=== PATIENT | female | born 1960 | race Caucasian/White ===

== ENCOUNTER → 2017-04-05 | Outpatient (CLI) | payer OTHER ==
[~2017-04-05] MED LIST: ALL180 PO; CLX20 PO; GADAVIST IV PRN; HYDC25 PO; LPR25 PO; TRAZ50TA35 PO
--- NOTE | 2017-04-05 13:55 | DIAGNOSTIC IMAGING REPORT ---
BRAIN COMBO CLINICAL HISTORY: Z87.820 History of traumatic brain [id number] mental status change. Trauma. COMPARISON STUDY: No previous studies for comparison. TECHNIQUE: Utilizing a 1.5 Tatianna magnet and dedicated coil, multiplanar, multiecho imaging of the brain was performed pre and postcontrast administration. IV administration of 12 mL of Gadavist contrast was uneventful. FINDINGS: Diffusion-weighted images are negative for an acute ischemic insult. All remaining sequences demonstrate several foci of increased signal within the periventricular deep white matter regions. This Potentially is age related and/or related to a history of chronic headache. There are no enhancing lesions. The ventricular system is midline. Sella and parasellar regions are unremarkable. Internal auditory canals are symmetric. IMPRESSION: Negative MRI of the brain. The above report was generated using voice recognition software. It may contain grammatical, syntax or spelling errors. Electronically signed by: Randolph Busch M.D. 04/05/2017 1:54 PM Dictated Date/Time: 04/05/2017 1:51 PM
== END | disposition home or self-care (01) ==
LOC: C.MRI 12:35
PROVIDERS: ATTEND Psychiatry & Neurology Neurology
DX: Z87.820 Personal history of traumatic brain injury (principal)

== ENCOUNTER 2022-05-07 06:29 | Observation (INO) ==
--- NOTE | 2022-04-19 10:50 | PAT Medication Instructions ---
Medication Instructions Date of Service April 19, 2022 Home Medications Medication Instructions Recorded carbidopa 25 mg-levodopa 100 mg 2 tab PO TID 30 days #180 tabs 01/29/22 tablet ondansetron 4 mg disintegrating 4 mg PO Q8H PRN nausea and 04/10/22 tablet vomiting #21 tabs pramipexole 1 mg tablet 1 mg PO TID 90 days #270 tabs 04/17/22 pregabalin 100 mg capsule 100 mg PO BID #60 caps 04/17/22 epinephrine 0.3 mg/0.3 mL injection, auto-injector (EpiPen) 0.3 mg IM DIRECTED PRN Allergic Reaction losartan 50 mg-hydrochlorothiazide 12.5 mg tablet 0.5 tab PO QAM metoprolol tartrate 25 mg tablet 25 mg PO BID atorvastatin 10 mg tablet 10 mg PO QAM bupropion HCl 150 mg 24 hr tablet, extended release 150 mg PO BID carbidopa 25 mg-levodopa 100 mg tablet 2 tab PO TID aspirin 81 mg tablet,delayed release (Adult Low Dose Aspirin) 81 mg PO HS oxybutynin chloride 5 mg tablet 5 mg PO QAM pantoprazole 40 mg tablet,delayed release 40 mg PO QAM spironolactone 25 mg tablet 25 mg PO QAM torsemide 20 mg tablet 20 mg PO QAM ondansetron 4 mg disintegrating tablet 4 mg PO Q8H PRN nausea and vomiting pramipexole 1 mg tablet 1 mg PO TID pregabalin 100 mg capsule 100 mg PO BID Medical Marijuana 1 dose PO DIRECTED PRN Pain albuterol sulfate 90 mcg/actuation aerosol inhaler 1 puff inhalation QID PRN Wheezing meloxicam 15 mg tablet 15 mg PO QAM Continue as directed epinephrine 0.3 mg/0.3 mL injection, auto-injector (EpiPen) 0.3 mg IM DIRECTED PRN Allergic Reaction (if needed) ASK your surgeon for instructions meloxicam 15 mg tablet 15 mg PO QAM DO NOT take the morning of surgery losartan 50 mg-hydrochlorothiazide 12.5 mg tablet 0.5 tab PO QAM oxybutynin chloride 5 mg tablet 5 mg PO QAM spironolactone 25 mg tablet 25 mg PO QAM torsemide 20 mg tablet 20 mg PO QAM Medical Marijuana 1 dose PO DIRECTED PRN Pain Take morning of surgery With a small sip of water, OTHERWISE NOTHING TO EAT OR DRINK AFTER MIDNIGHT: metoprolol tartrate 25 mg tablet 25 mg PO BID atorvastatin 10 mg tablet 10 mg PO QAM bupropion HCl 150 mg 24 hr tablet, extended release 150 mg PO BID carbidopa 25 mg-levodopa 100 mg tablet 2 tab PO TID pantoprazole 40 mg tablet,delayed release 40 mg PO QAM ondansetron 4 mg disintegrating tablet 4 mg PO Q8H PRN nausea and vomiting (if needed) pramipexole 1 mg tablet 1 mg PO TID pregabalin 100 mg capsule 100 mg PO BID albuterol sulfate 90 mcg/actuation aerosol inhaler 1 puff inhalation QID PRN Wheezing (use if needed; please bring rescue inhaler with you to hospital day of surgery if possible) Take evening before surgery metoprolol tartrate 25 mg tablet 25 mg PO BID bupropion HCl 150 mg 24 hr tablet, extended release 150 mg PO BID carbidopa 25 mg-levodopa 100 mg tablet 2 tab PO TID aspirin 81 mg tablet,delayed release (Adult Low Dose Aspirin) 81 mg PO HS (continue as normal unless told otherwise by surgeon) ondansetron 4 mg disintegrating tablet 4 mg PO Q8H PRN nausea and vomiting (if needed) pramipexole 1 mg tablet 1 mg PO TID pregabalin 100 mg capsule 100 mg PO BID Medical Marijuana 1 dose PO DIRECTED PRN Pain (if needed) albuterol sulfate 90 mcg/actuation aerosol inhaler 1 puff inhalation QID PRN Wheezing (if needed) Other Notes If you have any questions please call us at [phone] or [phone] or [phone] or [phone]
--- NOTE | 2022-04-20 09:57 | Anesthesiology Consultation ---
Date of Service April 20, 2022 Assessment & Plan (1) Encounter for pre-operative examination: - COVID screening: Per assessment on 04/20: No known COVID-19 positive contacts or current COVID-19 related symptoms. Travel screen negative. At surgeon discretion if preop Covid testing being done. - Outpatient joint assessment: Pt currently scheduled for inpatient pathway. If surgeon requests review for outpatient joint pathway, patient is not recommended candidate for outpatient joint program from anesthesia standpoint. - Neurology office visit (04/17/22): "62-year-old female with idiopathic mild tremor predominant left connor-Parkinson's disease and mild to moderate lumbar spinal stenosis with radiculopathy. Patient will continue with Sinemet and Mirapex at the current dosages for management of her Parkinson's. I did recommend increasing her dosage of Lyrica to 100 mg twice daily for improved control of her symptomatic lumbar spinal stenosis/lumbar radiculopathy. However, degree of degenerative change does not appear to be significant enough to warrant surgical intervention at this time. We will of the time being, however, patient is focusing on her left knee, may require total knee arthroplasty. I will continue to monitor this issue going forward. Could also consider a referral to pain management for NEEMA if necessary." - Patient acceptable risk for surgery pending surgeon-ordered cardiology preop evaluation (Bianca Guerrero, appt 04/24). Chart Review Chart Review: Patient seen in Pre Admission Testing Teaching & Discussion Pre-Anesthesia Teaching/Discussion Notes: Instructed NPO after midnight before surgery,except medications with 15 cc of water. Medication instructions provided according to the PAT guidelines. History Surgery Operation Date: 05/07/22 12:30 Proposed Procedures p Left Total Knee Arthroplasty - Gaetano Hays MD Height/Weight Height: 5 ft 1 in Weight: 115.7 kg Allergies Allergy/AdvReac Type Severity Reaction Status Date / Time bee venom protein (honey bee) Allergy Severe Anaphylaxis Verified 04/19/22 10:03 lisinopril Allergy Mild Cough Verified 04/19/22 10:03 Medications Home Medications Medication Instructions Recorded Confirmed Last Taken epinephrine 0.3 mg/0.3 mL 0.3 mg IM DIRECTED PRN Allergic 10/08/18 04/19/22 Unknown injection, auto-injector (EpiPen) Reaction losartan 50 mg-hydrochlorothiazide 0.5 tab PO QAM 10/08/18 04/19/22 08/04/19 12.5 mg tablet metoprolol tartrate 25 mg tablet 25 mg PO BID 10/08/18 04/19/22 08/04/19 atorvastatin 10 mg tablet 10 mg PO QAM 10/17/20 04/19/22 Unknown bupropion HCl 150 mg 24 hr tablet, 150 mg PO BID 10/17/20 04/19/22 Unknown extended release carbidopa 25 mg-levodopa 100 mg 2 tab PO TID 30 days #180 tabs 01/29/22 04/19/22 Unknown tablet aspirin 81 mg tablet,delayed 81 mg PO HS 03/08/22 04/19/22 Unknown release (Adult Low Dose Aspirin) oxybutynin chloride 5 mg tablet 5 mg PO QAM 03/08/22 04/19/22 Unknown pantoprazole 40 mg tablet,delayed 40 mg PO QAM 03/08/22 04/19/22 Unknown release spironolactone 25 mg tablet 25 mg PO QAM 03/08/22 04/19/22 Unknown torsemide 20 mg tablet 20 mg PO QAM 03/08/22 04/19/22 Unknown ondansetron 4 mg disintegrating 4 mg PO Q8H PRN nausea and 04/10/22 04/19/22 Unknown tablet vomiting #21 tabs pramipexole 1 mg tablet 1 mg PO TID 90 days #270 tabs 04/17/22 04/19/22 Unknown pregabalin 100 mg capsule 100 mg PO BID #60 caps 04/17/22 04/19/22 Unknown Medical Marijuana 1 dose PO DIRECTED PRN Pain 04/19/22 04/19/22 Unknown albuterol sulfate 90 mcg/actuation 1 puff inhalation QID PRN Wheezing 04/19/22 04/19/22 Unknown aerosol inhaler meloxicam 15 mg tablet 15 mg PO QAM 04/19/22 04/19/22 Unknown Wheeled Walker #1 ea 04/20/22 04/20/22 Unknown Past Medical History Medical History Asthma CHF (congestive heart failure) follows with Dr. 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, under surveillance Parkinson disease Primary osteoarthritis of knees, bilateral Sleep apnea No device Exercise / Class Metabolic Activity III < 4 Walking/Shop/Light housework (one FS (no CP, + occasional SOB)) Past Family History Family History Father Heart disease Grandfather (Paternal) Lung cancer Uncle Colorectal cancer Family/Other Breast cancer Grandmother (Maternal) Diabetes Grandfather (Maternal) Stroke Other No significant family history Past Surgical History Surgical History History of colonoscopy History of endometrial ablation History of tooth extraction Past Anesthesia History No Hx of Anesthesia Complications and No Family Hx of Anesthesia Complications History of PONV No Hx of PONV and Hx of Motion Sickness Social History Smoking Status: Never smoker Do You Dip or Chew Tobacco: No Hx Alcohol Use: Yes Alcohol type: wine alcohol intake frequency: a few times a week Hx Substance Use: Yes substance use type: marijuana (Medical card (for parkinsons)) Review of Systems Had Norovirus 04/11/22- pt reports at PAT visit that symptoms have resolved* Remote hx of occasional palpitations- no recent issues. Patient denies chest pain, shortness of breath, fever, chills, cough, wheezing. Physical Exam Vital Signs VITALS BP 98/53 > 106/62 with manual recheck P 63 TEMP 98.2 SP02 94%RA RESP 18 PHYSICAL Full cervical extension range of motion. Full TMJ range of motion. TMD 4 finger breaths Mallampati Score 3 Dentition: intact Lungs: clear throughout to auscultation Cardiac: regular rate and rhythm, no murmurs noted Spine: normal Carotid arteries: negative bruit Extremities: no edema Short, thick neck Lab Results Anesthesia Preop Results Results Anesthesia Widget: WBC 6.25 K/ul (4.8-10.8) 04/20/22 Hgb 12.2 g/dl (12.0-16.0) 04/20/22 Hct 37.9 % (37.0-47.0) 04/20/22 Plt 314 K/uL (130-400) 04/20/22 Na 142 mmol/L (136-145) 04/20/22 K 4.2 mmol/L (3.5-5.1) 04/20/22 Cl 101 mmol/L (98-107) 04/20/22 CO2 35 mmol/L (21-32) H 04/20/22 BUN 32 mg/dl (6-23) H 04/20/22 Creat 1.29 mg/dl (0.6-1.2) H 04/20/22 Glucose Level 87 mg/dl (70-99(Fasting)) 04/20/22 PT 10.7 Seconds (9.0-12.0) 04/20/22 PTT 28.0 Seconds (21.0-31.0) 04/20/22 INR 1.0 (0.9-1.1) 04/20/22 TSH 2.430 uIu/ml (0.300-4.500) 03/08/22 HA1c 6.3 % (4.5-5.6) H 03/08/22 SARS-CoV-2, RNA, NAAT Negative 04/10/22 Blood Type O Negative 04/20/22 Antibody Screen NEGATIVE 04/20/22 Testing Electrocardiogram Date: 03/14/22 Normal sinus rhythm at 70 bpm. Normal ECG. No significant change compared to 11/08/2021 per furniture sales consultant comparison. *Poor data quality. Chest X-Ray Date: 03/14/22 FINDINGS: Exam is limited by underpenetration. Cardiomegaly is noted. Atelectasis is seen in the right midlung. No airspace opacities are seen. No evidence of pleural effusion or pneumothorax. IMPRESSION: No acute abnormalities and in particular no evidence of pneumonia. Stress Test Date: 10/26/21 Type: exercise Nondiagnostic stress echo. Inadequate cardiovascular stress test as patient obtained 63% MPHR. 5.0 METS. No significant arrhythmias noted. Rest echo: LVEF 60 to 64%. Moderately increased concentric LV wall thickness. Mild RVD. Mild AR/MR. Trivial anterior loculated pericardial effusion is present. Grade 1 diastolic dysfunction. COVID-19 Risk Screen Screening Information COVID-19 Screen Date: 04/20/22 Exposure 21 Days Family/Household +COVID Last 21 Days: No Exposure 10 Days Any COVID Exposure Last 10 Days: No Symptoms Last 10 Days Experienced COVID Sx Last 10 Days: No + COVID 0-90 Days COVID + in Last 0-90 Days: No
--- NOTE | 2022-05-04 14:15 | Anesthesiology Consultation ---
Date of Service May 04, 2022 History Surgery Operation Date: 05/07/22 08:50 Proposed Procedures p Left Total Knee Arthroplasty - Gaetano Hays MD Height/Weight Height: 5 ft 1 in Weight: 115.7 kg Allergies Allergy/AdvReac Type Severity Reaction Status Date / Time bee venom protein (honey bee) Allergy Severe Anaphylaxis Verified 04/19/22 10:03 lisinopril Allergy Mild Cough Verified 04/19/22 10:03 Medications Home Medications Medication Instructions Recorded Confirmed Last Taken epinephrine 0.3 mg/0.3 mL 0.3 mg IM DIRECTED PRN Allergic 10/08/18 04/19/22 Unknown injection, auto-injector (EpiPen) Reaction losartan 50 mg-hydrochlorothiazide 0.5 tab PO QAM 10/08/18 04/19/22 08/04/19 12.5 mg tablet metoprolol tartrate 25 mg tablet 25 mg PO BID 10/08/18 04/19/22 08/04/19 atorvastatin 10 mg tablet 10 mg PO QAM 10/17/20 04/19/22 Unknown bupropion HCl 150 mg 24 hr tablet, 150 mg PO BID 10/17/20 04/19/22 Unknown extended release carbidopa 25 mg-levodopa 100 mg 2 tab PO TID 30 days #180 tabs 01/29/22 04/19/22 Unknown tablet aspirin 81 mg tablet,delayed 81 mg PO HS 03/08/22 04/19/22 Unknown release (Adult Low Dose Aspirin) oxybutynin chloride 5 mg tablet 5 mg PO QAM 03/08/22 04/19/22 Unknown pantoprazole 40 mg tablet,delayed 40 mg PO QAM 03/08/22 04/19/22 Unknown release spironolactone 25 mg tablet 25 mg PO QAM 03/08/22 04/19/22 Unknown torsemide 20 mg tablet 20 mg PO QAM 03/08/22 04/19/22 Unknown ondansetron 4 mg disintegrating 4 mg PO Q8H PRN nausea and 04/10/22 04/19/22 Unknown tablet vomiting #21 tabs pramipexole 1 mg tablet 1 mg PO TID 90 days #270 tabs 04/17/22 04/19/22 Unknown pregabalin 100 mg capsule 100 mg PO BID #60 caps 04/17/22 04/19/22 Unknown Medical Marijuana 1 dose PO DIRECTED PRN Pain 04/19/22 04/19/22 Unknown albuterol sulfate 90 mcg/actuation 1 puff inhalation QID PRN Wheezing 04/19/22 04/19/22 Unknown aerosol inhaler meloxicam 15 mg tablet 15 mg PO QAM 04/19/22 04/19/22 Unknown Wheeled Walker #1 ea 04/20/22 04/20/22 Unknown Past Medical History Medical History Asthma CHF (congestive heart failure) follows with Dr. 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, under surveillance Parkinson disease Primary osteoarthritis of knees, bilateral Sleep apnea No device Past Family History Family History Father Heart disease Grandfather (Paternal) Lung cancer Uncle Colorectal cancer Family/Other Breast cancer Grandmother (Maternal) Diabetes Grandfather (Maternal) Stroke Other No significant family history Past Surgical History Surgical History History of colonoscopy History of endometrial ablation History of tooth extraction Social History Smoking Status: Never smoker Do You Dip or Chew Tobacco: No Hx Alcohol Use: Yes Alcohol type: wine alcohol intake frequency: a few times a week Hx Substance Use: Yes substance use type: marijuana Substance Use Type Other:: Medical card for parkinsons
[~2022-05-07 06:29] MED LIST changes: +ACETAMINOPHEN 500 MG TAB PO SCH; -ALL180 PO; +BUPIVACAINE LIPOSOME/PF 266 MG, BUPIVACAINE/EPINEPHRINE 50 ML, SODIUM CHLORIDE 0.9% 30 ... INFIL SCH; -CLX20 PO; +CeleBREX 200 MG CAP PO SCH; +FAMOTIDINE 20 MG TAB PO SCH; -GADAVIST IV PRN; -HYDC25 PO; -LPR25 PO; +LR 15ML/HR IV SCH; +LR 60ML/HR IV SCH; +METOCLOPRAMIDE HCL 10 MG TABLET PO SCH; +Scopolamine 1 MG TDSY TD SCH; +TRANEXAMIC ACID 1,000 MG **IV Intra-op IV SCH; -TRAZ50TA35 PO; +ceFAZolin 2000MG 2,000 MG/15 ML SYR IV SCH
[2022-05-07] MEDS ORDERED: ROPIVACAINE 0.5% 5 MG/ML 30 ML VIAL ONE (06:33)
[2022-05-07] MEDS ORDERED: BUPIVACAINE 0.5 % 5 MG/1 ML PF 10ML VIAL ONE (06:33)
--- NOTE | 2022-05-07 06:45 | History & Physical Bridge Note ---
Date of Service May 07, 2022 History & Physical Bridge Note I have examined the patient, reviewed the History & Physical and in the interval since the performance of the History & Physical I have noted the following changes of clinical significance: no changes noted
[2022-05-07] MEDS ORDERED: fentaNYL citrate 100 MCG/2 ML VIAL ONE (07:16)
[2022-05-07] MEDS ORDERED: PROPOFOL IV EMULSION 10 MG/ML 20 ML VIAL IV ONE ×4 (07:16→09:45)
[2022-05-07] MEDS ORDERED: MIDAZOLAM HCL 1 MG/ML 2ML VIAL ONE (07:16)
[2022-05-07] MEDS ORDERED: ePHEDrine sulfate 50 MG/ML AMP IV PRN (07:42)
[2022-05-07] MEDS ORDERED: ALBUT/IPRATROP 3MG/0.5MG NEB 3 ML VIAL NEB STA (07:42)
[2022-05-07] MEDS ORDERED: fentaNYL citrate 100 MCG/2 ML VIAL IV PRN (07:42)
[2022-05-07] MEDS ORDERED: ONDANSETRON INJ 2 MG/ML 2 ML VIAL IV PRN ×2 (07:42→12:45)
[2022-05-07] MEDS ORDERED: ATROPINE SULFATE 0.1 MG/ML 10ML SYR IV PRN (07:42)
[2022-05-07] MEDS ORDERED: HYDROmorphone INJ 2 MG/ML SYR/VIAL IV PRN (07:42)
[2022-05-07] MEDS ORDERED: BUPIVACAINE/EPINEPHRINE 0.25% 1:200,000 30 ML VIAL ONE (08:59)
[2022-05-07] MEDS ORDERED: SODIUM CHLORIDE 0.9% PF 50 ML VIAL ONE (08:59)
[2022-05-07] MEDS ORDERED: BUPIVACAINE LIPOSOME 1.3% 266 MG/20 ML VIAL ONE (08:59)
[2022-05-07] MEDS ORDERED: VANCOMYCIN HCL 1000MG/20ML VIAL ONE (08:59)
[2022-05-07] MEDS ORDERED: ePHEDrine sulfate 50 MG/ML SYR ONE (09:39)
[2022-05-07] MEDS ORDERED: DEXAMETHASONE SOD INJ 4 MG/ML VIAL ONE (09:42)
[2022-05-07] MEDS ORDERED: ONDANSETRON INJ 2 MG/ML 2 ML VIAL ONE (09:42)
--- NOTE | 2022-05-07 11:18 | Operative Report ---
PG Post Operative Report Pre & Post Diagnosis Operation Date: 05/07/22 08:50 Pre-Op Diagnosis: Left Knee Degenerative Joint Disease Post-Op Diagnosis: Left Knee Degenerative Joint Disease I identified the patient and participated in the time-out.: Yes Procedure Operation Date: 05/07/22 08:50 Actual Procedures p Left Total Knee Arthroplasty(Left) - Gaetano Hays MD Surgeon Gaetano Hays MD Animal Husbandry Manager Ilia Schmid PA-C Estimated Blood Loss 50 Findings Consistent with Post-Op Diagnosis Operative findings revealed that large soft tissue envelope. She had grade 4 changes in all 3 compartments with a varus deformity to her knee and most severe in the medial side. Moderate-sized joint effusion. Specimens Left knee sent for pathology Anesthesia Type Spinal MAC Complications none Disposition Accompanied Patient To Recovery: No Indications Patient is a 62-year-old female with morbid obesity who has had a has a long history of bilateral knee pain discomfort left side bit worse than the right. She has been through extensive conservative treatment of the years which became less successful. It was really affecting her quality of life and ability to attempt to maintain an active lifestyle. She failed all conservative measures. She elected proceed with a left total knee arthroplasty. Description of Procedure Operative implants consist of: 1 Biomet Vanguard size 62.5 left posterior stabilized femoral component. 2. Biomet size 67 tibial tray. 3. 10 mm posterior stabilized polyethylene insert. 4. 28 x 8 all poly patella. The patient was taken the operating, identified, and placed on the operating table supine position but all contact areas were appropriately padded. IV antibiotics were provided by anesthesia team. An spinal anesthetic was implemented holding area along with an abductor canal block. A Burnett catheter was placed in sterile fashion for the left thigh tourniquet was then placed in the left lower extremity then prepped and draped in usual sterile fashion. The left leg was elevated and exsanguinated with use of an Esmarch and the tourniquet was placed at 350 mmHg. An anterior approach to the left knee was then performed to longitudinal incision centered over the patella. Sharp dissection was carried through subcutaneous tissue down the extensor mechanism. A medial parapatellar arthrotomy incision was made. Some subperiosteal dissection was carried out medially. The fat pad was resected from Neath patella tendon. The lateral patellofemoral ligament was released. Patella subluxated laterally knee was flexed. The osteophytes were taken off distal femur. The ACL and PCL were then released from distal femur the tibia was subluxated anteriorly. The external tibial alignment jig was then placed in the interface the tibia and adjusted 14 mm medially. Proximal tibial cut was made removed by millimeter bone from most deficient aspect medial tibial plateau. Some osteophytes taken off medial and posterior medially. Tibia sized to a size 67. Attention drawn the femur. The distal femur examined the sharp drill. Intramedullary canal was suction. A left 5 degree valgus cutting guide was placed. This femoral cutting block was pinned in place. Distal femoral cut was made to take an additional 3 mm of bone off distal femur. The femur was then sized to a size 62.5. The AP cutting block was pinned parallel to the epicondylar axis which was 5 degrees external rotation. The anterior cut, anterior chamfer, posterior cut, posterior chamfer cuts were made. The box cutting guide was placed in a just slight laterally. The box cut was made. The knee was flexed. The remnants of the medial and lateral menisci were excised. The osteophyte taken off the posterior aspect the femur. A trial femoral component was placed. Tibial tray was pinned in maximum external rotation and the drill and stem punch were used to create the defect in proximal tibia for the tibial tray. The knee was then trialed and 10 mm insert fit most appropriately. Attention drawn the patella. The patella was cleaned of all soft tissues. Patella thickness measured 22 mm in thickness. Was cut down to 13. Was sized to a size 28 patella. The lug holes were drilled for the 28 patella. The lateral osteophytes removed. Patella button was placed. Knee was taken through range of motion patella tracked nicely with no thumbs test. Attention drawn to placing permanent components. All trial components were removed. Bone plug was placed into the distal femur limit blood loss. Double batch Palacos G cement was mixed. I did add an additional gram of vancomycin into the cement due to her obesity and compromised medical status. A Biomet Vanguard size 62.5 left posterior stabilized femoral component, a size 67 tibial tray, a 10 mm posterior stabilized polyethylene insert, and a 28 x 8 all Paller patella then cemented in place. Knee was brought out into full extension till cement hardened. Final cement check was then performed. The pericapsular tissues were injected with total 100 cc of combination of 20 cc of Exparel, 30 cc normal saline, 50 cc of quarter percent Marcaine with epinephrine. Patient did receive 1 g tranexamic acid. The tourniquet was then let down for final tourniquet time of 61 minutes. Hemostasis assured use electrocautery. Extensor mechanism closed with combination 1 PDS suture #1 Vicryl suture in a [id number] fashion. Extensor mechanism checked found to be intact with subcutaneous tissue then closed with 2 Dexon suture in a buried interrupted fashion skin was closed skin katya. Leg was then cleaned and dried and sterile dressing was Xeroform, 4 fours, sterile cast padding, ABD pad, and Francisco bandage were applied. Patient then transferred to the recovery room in stable condition. The patient tolerated procedure well and there were no complications. Ilia Schmid, my physician dietetic assistant, was present for the entire procedure. His assistance was essential and required for appropriate patient positioning, prepping and draping, surgical exposure, performing the technical details of the operation, placement the implants, closure of the wound, and placement of the sterile bandage. I attest to the content of the Intraoperative Record and any orders documented therein. Any exceptions are noted below.
--- NOTE | 2022-05-07 12:37 | Anesthesiology Progress Note ---
Date of Service May 07, 2022 Anesthesia Post Procedure Vital Signs Vital Signs: Temp Pulse Pulse Resp BP BP Pulse Ox 05/07/22 12:12 36.4 C L 69 18 147/79 H 96 05/07/22 11:55 72 16 136/73 94 05/07/22 11:45 36.4 C L 73 20 132/87 95 05/07/22 11:35 68 13 142/72 H 100 05/07/22 11:25 68 12 140/70 100 05/07/22 11:15 36.1 C L 73 12 100/66 96 05/07/22 07:55 64 16 90 05/07/22 06:55 05/07/22 06:55 36.9 C 70 18 145/74 H 92 O2 Del Method O2 Flow Rate 05/07/22 12:12 Room Air 05/07/22 11:55 Room Air 05/07/22 11:45 Room Air 05/07/22 11:35 Oxymask 4 05/07/22 11:25 Oxymask 6 05/07/22 11:15 Oxymask 6 05/07/22 07:55 Room Air 05/07/22 06:55 Room Air 05/07/22 06:55 Room Air Pain Intensity Left Knee: Pain Intensity: 0 Transfer of Care Handoff Completed per policy Notes Mental Status: alert / awake / arousable and participated in evaluation Patient Amnestic to Procedure: Yes Nausea / Vomiting: adequately controlled Pain: adequately controlled Airway Patency, RR, SpO2: stable & adequate BP & HR: stable & adequate Hydration State: stable & adequate Anesthetic Complications: no major complications apparent and Pt Satisfied with anesthetic care
[2022-05-07] MEDS ORDERED: ALUMINUM/MAGNESIUM SUSP 30 ML UDC PO PRN (12:45)
[2022-05-07] MEDS ORDERED: NALOXONE HCL 0.4 MG/1 ML VIAL/CARP IV PRN (12:45)
[2022-05-07] MEDS ORDERED: bisacodyL 10 MG SUPP PR PRN (12:45)
[2022-05-07] MEDS ORDERED: ALBUTEROL HFA 8 GM INHALER INH PRN (12:45)
[2022-05-07] MEDS ORDERED: HYDROmorphone INJ 0.5 MG/0.5 ML SYR IV PRN (12:45)
[2022-05-07] MEDS ORDERED: MAGNESIUM HYDROXIDE SUSP 30 ML UDC PO PRN (12:45)
[2022-05-07] MEDS ORDERED: EPINEPHrine ADULT AUTO-INJECT 0.3 MG SYR IM PRN (12:45)
[2022-05-07] MEDS ORDERED: METOCLOPRAMIDE HCL INJ 5 MG/ML 2 ML VIAL IV PRN (12:45)
[2022-05-07] MEDS: SODIUM CHLORIDE 0.9% 1000ML 1,000 ML IV SCH ×2 (12:54→23:17)
[2022-05-07] MEDS: ACETAMINOPHEN 500 MG TAB PO SCH ×2 (13:21→20:35)
[2022-05-07] MEDS: KETOROLAC TROMETHAMINE 15 MG/ML VIAL IV SCH ×2 (13:23→18:29)
[2022-05-07] MEDS: CARBIDOPA/LEVODOPA 25/100MG TAB PO SCH ×2 (13:54→20:38)
[2022-05-07] MEDS: PRAMIPEXOLE DIHYDROCHLO 0.5 MG TAB PO SCH ×2 (13:55→20:39)
[2022-05-07] MEDS ORDERED: dexAMETHasone 10 MG in SYRINGE 0 ML IV SCH (14:00)
--- NOTE | 2022-05-07 14:24 | XRay Report ---
XR knee LT 1 or 2V routine CLINICAL HISTORY: Postoperative evaluation. COMPARISON: Knee radiographs April 06, 2022. FINDINGS: Alignment of the total left knee arthroplasty is anatomic. No periprosthetic fracture or u nexpected radiopaque foreign body. There are skin katya. IMPRESSION: Expected findings following total left knee arthroplasty. ACT 112: Negative or not required by law. Electronically signed by: Manohar Maurice M.D. 05/07/2022 2:22 PM
[2022-05-07] MEDS: Scopolamine CHECK PATCH PLACEMENT SCH (16:11)
[2022-05-07] MEDS ORDERED: TRANEXAMIC ACID / 0.7% NACL 1,000 MG/100 ML BAG IV SCH (17:15)
[2022-05-07] MEDS: ceFAZolin 2000MG 2,000 MG/15 ML SYR IV SCH (17:37)
[2022-05-07] MEDS: ASCORBIC ACID 500 MG TAB PO SCH (17:40)
[2022-05-07] MEDS: buPROPion XL 150 MG TABCR PO SCH (20:38)
[2022-05-07] MEDS: DOCUSATE SODIUM 100 MG CAP PO SCH (20:39)
[2022-05-07] MEDS: PREGABALIN 100 MG CAP PO SCH (20:39)
[2022-05-07] MEDS: METOPROLOL TARTRATE 25 MG TAB PO SCH (20:39)
[2022-05-07] MEDS: ASPIRIN 81 MG ECTAB PO SCH (20:39)
[2022-05-07] MEDS ORDERED: DOCUSATE SODIUM/SENNA 50/8.6MG TAB PO SCH (21:00)
[2022-05-07] MEDS ORDERED: SENNA 8.6 MG TAB PO SCH (21:00)
[2022-05-07] MEDS: oxyCODONE HCL IR 5 MG TAB (IMMEDIATE RELEASE) PO PRN (22:17)
[2022-05-08] MEDS: KETOROLAC TROMETHAMINE 15 MG/ML VIAL IV SCH ×2 (00:34→05:29)
[2022-05-08] MEDS: Scopolamine CHECK PATCH PLACEMENT SCH ×2 (00:35→08:23)
[2022-05-08] MEDS: ceFAZolin 2000MG 2,000 MG/15 ML SYR IV SCH (00:35)
[2022-05-08] MEDS: oxyCODONE HCL IR 5 MG TAB (IMMEDIATE RELEASE) PO PRN ×3 (03:20→13:06)
[2022-05-08] MEDS: ACETAMINOPHEN 500 MG TAB PO SCH (05:28)
[2022-05-08 06:20] LABS: Hematocrit (blood only) 33.2 % (37.0-47.0); Hemoglobin 10.7 g/dl (12.0-16.0); Mean Corpuscular Hgb Conc 32.2 g/dL (32.0-36.0); Mean Platelet Volume 9.8 fL (9.4-12.4); Platelet Count 296 K/uL (130-400); RDW Coefficient of Variation 13.2 % (11.5-14.5); RDW Standard Deviation 45.1 fL (36.4-46.3); Red Blood Count 3.57 M/uL (4.20-5.40); White Blood Count 15.04 K/ul (4.8-10.8)
[2022-05-08 06:38] LABS: BUN Creatinine Ratio 25.2 (10-20); Calcium 8.7 mg/dl (8.5-10.1); Creatinine Clr Calc Pharmacy 45.6 ml/min; Est GFR (African American) 42.2 ml/min; Est GFR (Non-African American) 36.4 ml/min; Potassium 4.6 mmol/L (3.5-5.1)
[2022-05-08] MEDS: ASCORBIC ACID 500 MG TAB PO SCH (08:24)
[2022-05-08] MEDS: METOPROLOL TARTRATE 25 MG TAB PO SCH (08:24)
[2022-05-08] MEDS: buPROPion XL 150 MG TABCR PO SCH (08:25)
[2022-05-08] MEDS: DOCUSATE SODIUM 100 MG CAP PO SCH (08:26)
[2022-05-08] MEDS: PRAMIPEXOLE DIHYDROCHLO 0.5 MG TAB PO SCH (08:26)
[2022-05-08] MEDS: CARBIDOPA/LEVODOPA 25/100MG TAB PO SCH (08:27)
[2022-05-08] MEDS: PREGABALIN 100 MG CAP PO SCH (08:30)
[2022-05-08] MEDS: ASPIRIN 81 MG ECTAB PO SCH (08:30)
[2022-05-08] MEDS ORDERED: OXYBUTYNIN CHLORIDE 5 MG TAB PO SCH (09:00)
[2022-05-08] MEDS ORDERED: LOSARTAN/HCTZ 50/12.5MG TAB PO SCH (09:00)
[2022-05-08] MEDS ORDERED: PANTOprazole 40 MG TAB PO SCH (09:00)
[2022-05-08] MEDS ORDERED: ATORVASTATIN 10 MG TAB PO SCH (09:00)
[2022-05-08] MEDS ORDERED: TORSEMIDE 20 MG TAB PO SCH (09:00)
[2022-05-08] MEDS ORDERED: MULTIVITAMIN TAB PO SCH (09:00)
[2022-05-08] MEDS ORDERED: SPIRONOLACTONE 25 MG TAB PO SCH (09:00)
--- NOTE | 2022-05-08 11:21 | Progress Notes ---
DATE OF SERVICE: 05/08/2022. SUBJECTIVE: A 62-year-old female postoperative day 1 from a left knee replacement. She is doing estevan te well. Pain has been controlled. She has been getting up and going to the bathroom reasonably wel l. Therapy is going okay. No chest pain or shortness of breath. Not feeling dizzy or lightheaded. OBJECTIVE: VITAL SIGNS: Temperature is 36.3. Vital signs are stable. GENERAL: Shows a pleasant middle-aged female, she is sitting up in her bedside chair, looks pretty c omfortable. LUNGS: Clear to auscultation. HEART: Regular rate and rhythm. ABDOMEN: Soft, nontender, nondistended. EXTREMITIES: Grossly neurovascularly intact except as follows. Examination of the left knee reveals the dressing to be clean, dry and intact. Leg is well aligned. She can do a pretty good straight leg raise. She can dorsiflex and plantarflex her foot appropriate ly. She is neurologically intact. LABORATORY DATA: Hemoglobin 10.7. Hematocrit 33.2. White cell count 15.01. Electrolytes are stabl e. Creatinine just slightly elevated. ASSESSMENT: A 62-year-old female postoperative day 1 from a left knee replacement, doing pretty well . Pain is controlled. She is neurologically intact. Creatinine is a little bit elevated. We will stop her Toradol. PLAN: 1. DVT prophylaxis includes thigh-high TEDs, SCDs, and aspirin twice a day. 2. PT/OT, weightbear as tolerated. Left total knee protocol. 3. Pain control, doing okay with current pain regimen. 4. Elevated creatinine. We are going to stop her Toradol. 5. Disposition: Plan is to discharge to home with some home health if she does okay in therapy. Job ID: [id number]
--- NOTE | 2022-05-09 12:44 | Discharge Summary ---
Date of Service May 09, 2022 Discharge Data Procedures Performed Operation Date: 05/07/22 08:50 Actual Procedures p Left Total Knee Arthroplasty(Left) - Gaetano Hays MD Hospital Course (1) Status post total left knee replacement: This is a 62 year old patient admitted on 05/07/22 and underwent total knee arthroplasty. She tolerated the procedure well and there were no complications. Transferred to the PACU post op and later to the orthopedic floor for further care. She was given ancef for antibiotic prophylaxis. She was also given KHLOE stockings, SCDs, and aspirin for DVT prophylaxis. Hemoglobin, hematocrit, and vital signs were monitored during her hospital stay and remained stable. Did not require any blood transfusions. There were no complications during her hospital stay. By post op day #1 the patient was tolerating a regular diet, pain was reasonably controlled with oral pain medicine, and she was participating in physical therapy. On post op day #1 she was discharged home and set up with home health care. __ was given printed discharge instructions including prescriptions for extra strength tylenol, aspirin, cefadroxil, ketorolac, zofran, senokot, and oxycodone. Continue physical therapy, weight bearing as tolerated. Continue KHLOE stockings. Follow up approximately 2 weeks post op or sooner if there are problems or concerns. Coding Level of Care Code None Diagnoses Status post total left knee replacement Z96.652
== END 2022-05-08 13:23 | disposition home health service (06) ==
LOC: 3E 06:29 → ASU 06:29
DX: Z79.1 Long term (current) use of non-steroidal anti-inflammatories (NSAID); Z88.8 Allergy status to other drugs, medicaments and biological substances; Z91.030 Bee allergy status; M25.762 Osteophyte, left knee; G20 Parkinson's disease; M65.9 Synovitis and tenosynovitis, unspecified; Z79.82 Long term (current) use of aspirin; M25.462 Effusion, left knee; M48.061 Spinal stenosis, lumbar region without neurogenic claudication; Z86.16 Personal history of COVID-19; M17.12 Unilateral primary osteoarthritis, left knee; M54.16 Radiculopathy, lumbar region; Z79.899 Other long term (current) drug therapy; I50.32 Chronic diastolic (congestive) heart failure; M21.162 Varus deformity, not elsewhere classified, left knee; Z68.42 Body mass index [BMI] 45.0-49.9, adult; Z20.822 Contact with and (suspected) exposure to COVID-19; E66.01 Morbid (severe) obesity due to excess calories